=== PATIENT | female | born 1995 | race Caucasian/White ===

== ENCOUNTER 2021-06-17 09:38 | Inpatient (IN) | payer BC, SELFPAY ==
[2021-06-17] VITALS (36 sets, daily range): BP systolic 98–133; BP diastolic 55–89; PULSE 63–105; RESP 16–18; TEMP 36.2–36.9; O2SAT 98–100; BMI 23.1
[2021-06-17 10:33] LABS: Basophils Percent Auto 0.3 % (0.2-1.2); Eosinophils Absolute Auto 0.2 K/mm3 (0-0.3); Eosinophils Percent Auto 1.6 % (0-4.4); Hematocrit 40.8 % (37.0-47.0); Hemoglobin 13.4 g/dL (12.0-15.0); Immature Granulocyte Absolute 0.04 K/mm3 (0.00-0.031); Immature Granulocyte Percent A 0.4 % (0-0.5); Lymphocytes Absolute Auto 1.86 K/mm3 (0.9-3.2); Lymphocytes Percent Auto 16.6 % (18.3-44.2); Mean Corpuscular HGB Conc 32.8 g/dl (32-36); Mean Corpuscular Hemoglobin 30.4 pg (26-34); Mean Corpuscular Volume 92.5 fl (80-100); Mean Platelet Volume 12.3 fl (7.4-10.4); Monocytes Absolute Auto 0.9 K/mm3 (0.1-0.6); Monocytes Percent Auto 7.6 % (2.6-8.5); Neutrophils Absolute Auto 8.3 K/mm3 (1.3-6.7); Neutrophils Percent Auto 73.5 % (45.5-73.1); Platelet Count Result 171 k/mm3 (150-375); Red Blood Count 4.41 M/mm3 (4.2-5.4); Red Cell Distribution Width 12.7 % (11.5-14.5); White Blood Count 11.2 K/mm3 (4.5-10.0)
--- NOTE | 2021-06-17 11:43 | LDADM ---
This patient, Josep Amezquita, was admitted to Labor/Delivery/Recovery 105 on 06/17/21 at 09:38. Plans for labor, pain management and were discussed with patient. Patient/family oriented to hospital policies and general routines including ID bracelet, bed and alarms, visiting hours, pain management, procedures, bathroom and other care routines, personal items, smoking policy, room service/diet and guest tray routines, security routines, and visiting hours. Patient/Family are encouraged to report perceived risks to care and to ask questions if they do not understand what they are told or what they should do. See OBIX for further documentation.
[2021-06-17] MEDS: fentaNYL CITRATE INJ (*CRX) 100 MCG/2 ML VIAL 50 MCG IV PUSH (12:09)
--- NOTE | 2021-06-17 12:18 | WPDOBADMIT ---
Obstetrics - Admit Note Admission Note: record reviewed. No pertinent additions to the history and/or any subsequent changes in the physical findings that are not consistent with the expected course of the were found. Pt admitted after SROM at home 4 cm per rn, anticipate vaginal delivery Additions to the history and/or subsequent changes in the physical findings follow. None.
[2021-06-17] MEDS: LACTATED RINGERS 1,000 ML 125 ML IV CONT (12:41)
--- NOTE | 2021-06-17 13:41 | P.PCNOB_ITS ---
OB - Delivery Note Procedure Delivery date: 06/17/21 Procedure: vaginal delivery Intrapartal events: None Induction method: none Delivery monitor: external FHT and external uterine Route of delivery: Laceration Description: Perineal - 1st Degree Delivery repair: vicryl Specimen: No Quantitative Blood Loss (ml): 100 Anesthesia type: Epidural Disposition: floor [place] Baby Date of : 06/17/21 Time of : 13:28 Weeks of gestation at delivery: 37 Infant gender: Male Weight (pounds): 6 Weight (ounces): 6 presentation: vertex position: Left Occiput Anterior Placenta delivery description: Spontaneous cord vessel description: 3 Vessels, Nuchal Cord, Tight and Clamped/Cut score one minute: 5 score five minutes: 8 Narrative: nuchal cord tight clamped and cut on perineum, compound presentation with anterior forearm delivered with head, delivered easily and handed to RN, mother and baby in stable condition
[2021-06-17] MEDS: WITCH HAZEL 40 PADS 1 PAD TOPICAL (16:25)
[2021-06-17] MEDS: BENZOCAINE 20% AER SPR (*SP) 56 GM CAN 1 SPRAY TOPICAL (16:25)
--- NOTE | 2021-06-17 16:55 | OBPPTRN ---
Patient transferred to post room # 288 via wheelchair. Support person present. Oriented to unit, room, information board, rooming in, admission packet and security measures. Patient verbalizes understanding. PT received instructions per one to one discussion, mom baby care guide and demonstration. PT and spouse both recipients of such instructions and no barriers to learning identified.
[2021-06-18 05:59] LABS: Hematocrit 34.4 % (37.0-47.0); Hemoglobin 11.7 g/dL (12.0-15.0)
--- NOTE | 2021-06-18 07:00 | PC.NURSE ---
PT introductions made and plan of care discussed per post , pain management, breast feeding, daily care activities. PT received instructions and education through this shift via one to one discussion, mom baby care guide and demonstration. Both patient and spouse recipients of instructions and no barriers to learning identified. PT verbalized understanding of such care.
[2021-06-18 07:45] VITALS: BP 98/51; PULSE 78; RESP 18; TEMP 37.1; O2SAT 97
--- NOTE | 2021-06-18 08:17 | P.PNOB_ITS ---
OB - PN: Subj Subjective Date/time seen: 06/18/21 08:17 Patient comments: no complaints baby status: doing well OB - PN: Obj Data Labs CBC & Chem 7: 06/18/21 05:51 Labs: Laboratory Results - last 24 hr 06/17/21 06/17/21 06/18/21 10:26 10:26 05:51 WBC 11.2 H RBC 4.41 Hgb 13.4 11.7 L Hct 40.8 34.4 L MCV 92.5 MCH 30.4 MCHC 32.8 RDW 12.7 Plt Count 171 MPV 12.3 H Immature Gran % (Auto) 0.4 Neut % (Auto) 73.5 H Lymph % (Auto) 16.6 L [place] % (Auto) 7.6 Eos % (Auto) 1.6 Baso % (Auto) 0.3 Lymph # (Auto) 1.86 [place] # (Auto) 0.9 H Eos # (Auto) 0.2 Baso # (Auto) 0.0 Abs Immat Gran (auto) 0.04 H Absolute Neuts (auto) 8.3 H Absolute Nucleated RBC 0.0 Nucleated RBC % 0.0 Blood Type O Positive Antibody Screen Negative OB - PN A/P Plan day: 1 Plan: routine care Time Spent With Patient Time: Total time spent is greater than 50% in coordination of care (as documented) at patient's floor/unit and/or counseling patient: Time with patient: less than 15 minutes Review of Systems Review of Systems: All systems reviewed & are unremarkable except as noted in HPI and below Exam Narrative: Fundus firm and vaginal flow controlled. No lower ext redness, warmth, or edema. Negative homans. Const: General: comfortable Chest: Breast/axilla inspection: normal inspection of the breasts Resp: Effort & Inspection: normal respiratory effort Cardio: Rate: regular rate GI: GI Palp: Yes Soft to palpation Psych: Appearance: grossly normal Affect: normal affect Attitude: cooperative Thought content: Yes Normal thought content present Judgement: Good judgement present (Psych)
[2021-06-18 09:27] LABS: Rapid Plasma Reagin Non-Reactive (NonReactive)
--- NOTE | 2021-06-18 09:51 | WPDANLDPN2 ---
Anes-Prog Note L&D Date/Time: 06/18/21 09:51 Comfortable throughout: labor and delivery Neuraxial method: epidural Epidural/Spinal procedure site: clean & non-tender Neuro status: Neuro function grossly intact. Cardiovascular status: normal Respiratory status: normal Airway patency: baseline Mental status: baseline Post-Op hydration status: normal Vital Signs: Last Vital Signs Temp 37.1 C 06/18/21 07:45 Pulse 78 06/18/21 07:45 Resp 18 06/18/21 07:45 BP 98/51 L 06/18/21 07:45 Pulse Ox 97 06/18/21 07:45 Pain score (VAS): 3 I/O: Intake & Output 06/17/21 06/18/21 06/18/21 23:59 07:59 15:59 Output Total 100 Balance -100 Post-procedural complaints: none Patient feedback: Patient satisfied with anesthetic care.
[2021-06-18 10:45] VITALS: PULSE 120; RESP 18; O2SAT 97
[2021-06-18] MEDS: IBUPROFEN 600 MG TABLET PO ×2 (10:47→17:26)
[2021-06-18] MEDS: MULTIVIT/MIN/PREN/FOL AC/IRON TABLET 1 TAB PO (10:47)
[2021-06-18] MEDS: DOCUSATE SODIUM 100 MG CAPSULE PO ×2 (10:47→17:26)
[2021-06-18] MEDS: TETANUS,DIPHTHERIA,AC PERTUSSIS ADULT (0.5 ML) BOOSTRIX IM (10:48)
[2021-06-18] MEDS: LANOLIN (LANSINOH) 7.5 GM CREAM 1 APPLIC TOPICAL (10:48)
[2021-06-18 12:36] VITALS: BP 119/77; PULSE 78; RESP 16; TEMP 37.1; O2SAT 98
--- NOTE | 2021-06-18 13:15 | PC.NURSE ---
Mother called out for assist with feeding, reporting she supplementing after feedings and pumping due to infant sleepiness at breast. is able to freely thrust tongue past gum ridge and flange both lips. Skin is intact on both nipples, no redness and bruising noted. Discussed the near term/ and possible precautions of weak latch, sleepy feedings, needing to wake each feeding, inability to maintain latch and poor milk transfer which increases chance for increased weight loss, jaundice and low milk supply. Stressed the importance of adequate breast stimulation by pumping, self-expression and skin to skin. Reviewed infant feeding cues, frequencies, duration of feedings, feeding elimination flow sheet, and signs of adequate intake. Demonstrated stimulation techniques to wake for feeding. Assisted with infant to breast. Reviewed positioning/alignment in cross cradle, holding breast in ?U? hold and guided asymmetrical latch on. Discussed rational for each. Infant able to latch correctly. Reviewed signs of a correct latch, effective nursing and suck swallow ratio. nursed sleepily with consistent steady draws and occasional swallowing noted with long pausing. Reviewed the difference of effective vs ineffective nursing. Suggested mother stimulate while feeding to increase stimulation, increase intake and to assist with maintaining deep latch. Infant was able to maintain latch without discomfort to mother. Demonstrated how to adjust latch more deeply while feeding if needed. Nipple care reviewed of lanolin after feedings, warm compresses as needed. Mother will continue to pump and supplement until infant is more awake with eager consistent feeding.
[2021-06-18 20:00] VITALS: BP 108/77; PULSE 79; RESP 16; TEMP 36.7; O2SAT 97
[2021-06-19] MEDS: IBUPROFEN 600 MG TABLET PO ×2 (01:18→09:21)
--- NOTE | 2021-06-19 07:39 | PM.OBPNVD ---
OB - PN: Subj Subjective Date/time seen: 06/19/21 07:39 Patient comments: other (? hemorrhoid per pt) [place] baby status: doing well feeding status: breast and bottle feeding OB - PN: Obj Data Labs CBC & Chem 7: 06/18/21 05:51 Labs: Laboratory Results - last 24 hr 06/17/21 10:26 RPR Non-reactive OB - PN A/P Plan day: 2 Plan: routine care and discharge home Time Spent With Patient Time: Total time spent is greater than 50% in coordination of care (as documented) at patient's floor/unit and/or counseling patient: Review of Systems Review of Systems: All systems reviewed & are unremarkable except as noted in HPI and below Exam Narrative: small excess skin from repair protruding Const: General: cooperative
--- NOTE | 2021-06-19 07:41 | PM.OBDSVD ---
DS: Admitting Diagnosis Admitting Diagnosis SROM, labor OB - DS: Summary OB Procedures : None OB Procedures Intrapartum: Spontaneous Vag Delivery OB Procedures: : None Time Spent with Patient Time attestation: Total time spent providing and/or coordinating discharge services: DS: Data Data Completed and Pending Labs on day of discharge: Labs from last 24 hours 06/17/21 10:26 RPR Non-reactive Discharge Plan Discharge Attending physician on discharge: Mara Guzmán Discharging Clinician: Thuy Frye Patient Disposition: Home, Self-Care Activity: pelvic rest Diet: regular Patient Instructions: Antibiotic Form Stand Alone Forms: General Discharge Information Follow-up/Referrals: Thuy Frye, CNM [Certified Nurse Atmospheric Scientist] - 1 Week (to check on laceration) Discharge Medications: New ibuprofen 600 mg Tablet 600 mg PO Q6H PRN (Reason: Cramping) Qty: 30 RF: 0 Continued PNV cmb#95-ferrous fumarate-FA [] 28 mg iron- 800 mcg Tablet 1 tablet PO DAILY RF: 0 Date of admission: 06/17/21 09:38 Primary Care Provider: PHYSICIAN,PROFESSOR OF POLITICAL SCIENCE Admitting Provider: Mara Guzmán Attending physician on admission: Mara Guzmán Condition: Stable
--- NOTE | 2021-06-19 08:15 | PC.NURSE ---
Mother is able to independently latch with appropriate positioning/alignment. Infant is more awake and eagerly feeding this observation. She denies any nipple discomfort, is feeding as required and waking infant to feed if needed. Infant has had several effective feedings in the past 24 hours followed by supplementation, and is currently meeting outcomes for weight, output, jaundice and feeding frequencies. Mother is pumping after each feeding without difficulties or discomfort and has a [employer] double electric for home use. Mother states she feels confident to continue continue current feeding at home of breast/supplementation. Discussed to increase supplementation to desires. With increased supplement may not want to feed for 4 hours, then should be woken to feed. Mother will continue to pump on infant feeding schedule increasing session to 20 minutes if every 4 hours. Reviewed as mother's milk transitions in and infant continues to nurse effectively he may want to decrease supplementation. Advised not to discontinue until pre/post feeding evaluation is done by follow up, ICP or LC. Reviewed transition to breast milk, signs of adequate intake, and engorgement/relief. Instructed to call ICP if intake/output less than required. Reviewed regular medications mother is taking. Information provided per Pamela. Reviewed community resources on the [facility] website and in the Mom/Baby guide. Information on outpatient services provided. Mother has no further questions at this time.
[2021-06-19 08:40] VITALS: BP 106/67; PULSE 75; RESP 16; TEMP 36.7; O2SAT 100
[2021-06-19] MEDS: MULTIVIT/MIN/PREN/FOL AC/IRON TABLET 1 TAB PO (09:22)
[2021-06-19] MEDS: DOCUSATE SODIUM 100 MG CAPSULE PO (09:22)
--- NOTE | 2021-06-19 15:10 | PC.NURSE ---
3232 Patient and FOB viewed the discharge video Mother & Baby Care, The First Two Weeks . Patient was given the opportunity and encouraged to ask questions. Patient verbalized understanding of information shared and has been given the mother/baby guide for home reference.
[2021-06-20 08:32] VITALS: BP 115/80; PULSE 72; RESP 18; TEMP 36.6
== END 2021-06-19 13:26 | disposition home or self-care (01) | DRG 807 ==
LOC: ANHLDR 10:28 → ANHOB2 17:06
PROVIDERS: Advanced Practice Midwife; Admitting Provider Obstetrics & Gynecology; Visit Provider Obstetrics & Gynecology
DX: O32.6XX0 Maternal care for compound presentation, not applicable or unspecified (principal); Z37.0 Single live birth; O70.0 First degree perineal laceration during delivery; O69.1XX0 Labor and delivery complicated by cord around neck, with compression, not applicable or unspecified; Z3A.37 37 weeks gestation of pregnancy
CPT/HCPCS: 36415; 84112; 85014; 85018; 85025; 86592; 86850; 86900; 86901; 90715; A9270; J2795; J3010; J7120

== ENCOUNTER 2023-07-30 18:15 | Outpatient (CLI) | payer OTHER, SELFPAY ==
[2023-07-30 18:34] VITALS: BP 107/68; PULSE 70
[2023-07-30] MEDS: ACETAMINOPHEN/BUTALBITAL/CAFFEINE 325-50-40 MG TABLET (FIORICET) 1 TAB PO (19:14)
[2023-07-30 19:18] VITALS: BP 99/66; PULSE 81
--- NOTE | 2023-07-30 19:28 | OBADM ---
This patient, Josep Amezquita, admitted to the OB room OB Post 116 for observation. Patient/family oriented to hospital policies and general routines including ID bracelet, bed and alarms, visiting hours, pain management, procedures, bathroom and other care routines, personal items, smoking policy, room service/diet, and visiting hours. Patient/Family are encouraged to report perceived risks to care and to ask questions if they do not understand what they are told or what they should do.
[2023-07-30 19:30] VITALS: BP 103/64; PULSE 79
[2023-07-30 19:33] LABS: Basophils Percent Auto 0.2 % (0.2-1.2); Eosinophils Absolute Auto 0.2 K/mm3 (0-0.3); Eosinophils Percent Auto 1.9 % (0-4.4); Hematocrit 35.6 % (37.0-47.0); Hemoglobin 11.5 g/dL (12.0-15.0); Immature Granulocyte Absolute 0.03 K/mm3 (0.00-0.031); Immature Granulocyte Percent A 0.4 % (0-0.5); Lymphocytes Absolute Auto 1.64 K/mm3 (0.9-3.2); Lymphocytes Percent Auto 19.5 % (18.3-44.2); Mean Corpuscular HGB Conc 32.3 g/dl (32-36); Mean Corpuscular Hemoglobin 30.5 pg (26-34); Mean Corpuscular Volume 94.4 fl (80-100); Mean Platelet Volume 10.8 fl (7.4-10.4); Monocytes Absolute Auto 0.7 K/mm3 (0.1-0.6); Monocytes Percent Auto 8.2 % (2.6-8.5); Neutrophils Absolute Auto 5.9 K/mm3 (1.3-6.7); Neutrophils Percent Auto 69.8 % (45.5-73.1); Platelet Count Result 189 k/mm3 (150-375); Red Blood Count 3.77 M/mm3 (4.2-5.4); Red Cell Distribution Width 12.7 % (11.5-14.5); White Blood Count 8.4 K/mm3 (4.5-10.0)
[2023-07-30 19:40] LABS: Appearance Urine Clear (Clear); Bilirubin Urine Negative (Negative); Blood Urine Negative (Negative); Color Urine Yellow (Yellow); Glucose Urine UA Negative (Negative); Ketones Urine 1+ mg/dL (Negative); Leukocyte Esterase Ur Negative LEU/UL (NEGATIVE); Nitrate Urine Negative (Negative); Protein Urine Negative (Negative); Specific Grav Ur 1.025 (1.001-1.035); Urobilinogen Urine 0.2 mg/dL (<2.0); pH Urine 7.5 (5.0-9.0)
[2023-07-30 19:46] LABS: Creatinine Urine 104.4 mg/dL
[2023-07-30 19:50] LABS: Alanine Aminotransferase 11 U/L (6-35); Albumin Level 3.4 g/dL (3.5-5.1); Alkaline Phosphatase 80 U/L (38-126); Anion Gap 2 mmol/L (8-16); Aspartate Amino Transferase 22 U/L (14-36); Bilirubin,Total 0.3 mg/dL (0.2-1.3); Blood Urea Nitrogen 9 mg/dL (7-17); Calcium 8.4 mg/dL (8.4-10.2); Carbon Dioxide 26 mmol/L (22-30); Chloride 104 mmol/L (98-107); Estimated CRCL calculation 145 ml/min; Estimated Glomerular Filt Rate > 60; Glucose 72 mg/dL (65-110); Potassium 3.6 mmol/L (3.4-5.0); Sodium 132 mmol/L (137-145)
[2023-07-30 20:00] VITALS: BP 107/74; PULSE 84
[2023-07-30 20:02] LABS: Add Urine Microscopic? NO
[2023-07-30 20:03] LABS: Total Protein Urine Random < 5 mg/dL; Ur Ttl Prot Creatinine Ratio < 0.05 mg/mg (0-0.20)
== END 2023-07-30 20:19 | disposition home or self-care (01) ==
LOC: ANHOBOP 18:22 → ANHOBPP 18:25
PROVIDERS: Advanced Practice Midwife; Visit Provider Obstetrics & Gynecology
DX: Z34.90 Encounter for supervision of normal pregnancy, unspecified, unspecified trimester (principal); Z3A.00 Weeks of gestation of pregnancy not specified
CPT/HCPCS: 36415; 80053; 81003; 82570; 84156; 85025; 99199; A9270

== ENCOUNTER 2023-10-08 20:33 | Observation (INO) | payer OTHER, SELFPAY ==
--- NOTE | 2023-10-08 20:33 | OBADM ---
This patient, Josep Amezquita, admitted to the OB room Labor/Delivery/Recovery 105 for observation. Patient/family oriented to hospital policies and general routines including ID bracelet, bed and alarms, visiting hours, pain management, procedures, bathroom and other care routines, personal items, smoking policy, room service/diet, and visiting hours. Patient/Family are encouraged to report perceived risks to care and to ask questions if they do not understand what they are told or what they should do.
[2023-10-08 22:47] VITALS: RESP 16; TEMP 36.6
[2023-10-09 00:01] VITALS: BP 112/70; PULSE 71
[2023-10-09 00:15] VITALS: BP 110/70; PULSE 77
--- NOTE | 2023-10-09 00:26 | PC.NURSE ---
Discharge instructions reviewed with patient and significant other. Patient educated on labor precautions. Patient states understanding of discharge education and instructions. Patient instructed to follow-up at her regular OB appointment.
--- NOTE | 2023-10-10 14:06 | PM.OBTRLD ---
OB - Triage/Final Diagnosis Visit Information Date of evaluation: 10/09/23 Reason for evaluation: threatened labor Comments/Additional reasons for admission: I have assessed the risk for this patient, Josep Amezquita, and determined that she would benefit from observation care.
== END 2023-10-09 00:34 | disposition home or self-care (01) ==
PROVIDERS: Admitting Provider Obstetrics & Gynecology; Visit Provider Obstetrics & Gynecology
DX: O47.1 False labor at or after 37 completed weeks of gestation (principal); Z3A.37 37 weeks gestation of pregnancy
CPT/HCPCS: G0378; G0379

== ENCOUNTER 2023-10-25 04:09 | Inpatient (IN) | payer OTHER, SELFPAY ==
[2023-10-25] VITALS (15 sets, daily range): BP systolic 99–123; BP diastolic 58–95; PULSE 25–97; RESP 16–18; TEMP 36.7–37.5; O2SAT 97–100
[2023-10-25 04:33] LABS: Basophils Absolute Auto 0.1 K/mm3 (0.0-0.1); Basophils Percent Auto 0.5 % (0.2-1.2); Eosinophils Absolute Auto 0.4 K/mm3 (0-0.3); Eosinophils Percent Auto 3.2 % (0-4.4); Hematocrit 39.8 % (37.0-47.0); Hemoglobin 13.1 g/dL (12.0-15.0); Immature Granulocyte Absolute 0.03 K/mm3 (0.00-0.031); Immature Granulocyte Percent A 0.3 % (0-0.5); Lymphocytes Absolute Auto 3.56 K/mm3 (0.9-3.2); Lymphocytes Percent Auto 30.6 % (18.3-44.2); Mean Corpuscular HGB Conc 32.9 g/dl (32-36); Mean Corpuscular Hemoglobin 30.2 pg (26-34); Mean Corpuscular Volume 91.7 fl (80-100); Mean Platelet Volume 11.1 fl (7.4-10.4); Monocytes Absolute Auto 1.2 K/mm3 (0.1-0.6); Monocytes Percent Auto 10.6 % (2.6-8.5); Neutrophils Absolute Auto 6.4 K/mm3 (1.3-6.7); Neutrophils Percent Auto 54.8 % (45.5-73.1); Platelet Count Result 183 k/mm3 (150-375); Red Blood Count 4.34 M/mm3 (4.2-5.4); Red Cell Distribution Width 13.1 % (11.5-14.5); White Blood Count 11.6 K/mm3 (4.5-10.0)
--- NOTE | 2023-10-25 05:02 | WPDANESEPP ---
Anes - Eval Pre Procedure Procedure: labor epidural Date/Time: 10/25/23 05:02 Surgeon: hugh Preop Diagnosis: pain during labor Pre Op Diagnosis: Labor Patient Data Age: 28 Gender: F Height: Weight: Last Vital Signs Pulse 82 10/25/23 04:46 BP 121/95 H 10/25/23 04:46 Pulse Ox 100 10/25/23 04:48 Allergies Allergy/AdvReac Type Severity Reaction Status Date / Time Sulfa (Sulfonamide Allergy Hives Verified 09/28/23 12:23 Antibiotics) Home Medications Medication Instructions Recorded Confirmed Type vit no.95-ferrous 1 tablet PO DAILY 06/04/21 09/28/23 History fumarate 28 mg-folic acid 800 mcg tablet () Laboratory Tests 10/25/23 04:29 WBC 11.6 H K/mm3 (4.5-10.0) RBC 4.34 M/mm3 (4.2-5.4) Hgb 13.1 g/dL (12.0-15.0) Hct 39.8 % (37.0-47.0) MCV 91.7 fl (80-100) MCH 30.2 pg (26-34) MCHC 32.9 g/dl (32-36) RDW 13.1 % (11.5-14.5) Plt Count 183 k/mm3 (150-375) MPV 11.1 H fl (7.4-10.4) Immature Gran % (Auto) 0.3 % (0-0.5) Neut % (Auto) 54.8 % (45.5-73.1) Lymph % (Auto) 30.6 % (18.3-44.2) [place] % (Auto) 10.6 H % (2.6-8.5) Eos % (Auto) 3.2 % (0-4.4) Baso % (Auto) 0.5 % (0.2-1.2) Lymph # (Auto) 3.56 H K/mm3 (0.9-3.2) [place] # (Auto) 1.2 H K/mm3 (0.1-0.6) Eos # (Auto) 0.4 H K/mm3 (0-0.3) Baso # (Auto) 0.1 K/mm3 (0.0-0.1) Abs Immat Gran (auto) 0.03 K/mm3 (0.00-0.031) Absolute Neuts (auto) 6.4 K/mm3 (1.3-6.7) Absolute Nucleated RBC 0.0 K/mm3 (0.0-0.012) Nucleated RBC % 0.0 % (0.0-0.2) RPR Pending Blood Type Pending Antibody Screen Pending Patient hx anesthesia problems: none Family hx anesthesia problems: none Results Review: All pre-operative results and documents have been reviewed as part of the pre-operative evaluation. [facility] Past Medical History Medical History (Updated 10/25/23 @ 05:03 by Ashley Jacobsen CRNA) IUP (intrauterine ), incidental Family History Family History Other No pertinent family history Social History Social History Smoking status: Never smoker Substance use: never Gender identity (if verbalized by the patient): Female Spiritual care concerns: No Exam Day of Procedure 10/25/23 05:02
--- NOTE | 2023-10-25 05:03 | P.PCNOB_ITS ---
OB - Vaginal Delivery Note Procedure Delivery date: 10/25/23 Delivery monitor: External FHT and External Uterine Route of delivery: Episiotomy description: None Laceration Description: None Specimen: No Quantitative Blood Loss (ml): 70 Anesthesia type: Epidural Disposition: Floor [place] Baby Date of : 10/25/23 Time of : 04:53 Weeks of gestation at delivery: 40 gender: Female presentation: vertex position: Left Occiput Anterior Placenta delivery description: Spontaneous Cord Vessel Description: 3 Vessels, Nuchal Cord (x1), Reduced and Delayed Cord Clamping score one minute: 8 score five minutes: 9 Narrative: mother and baby skin to skin in stable condition
--- NOTE | 2023-10-25 05:03 | WPDOBADMIT ---
Obstetrics - Admit Note Admission Note: record reviewed. No pertinent additions to the history and/or any subsequent changes in the physical findings that are not consistent with the expected course of the were found. Additions to the history and/or subsequent changes in the physical findings follow. arrived in labor, SROM
--- NOTE | 2023-10-25 07:58 | OBPPTRN ---
Patient transferred to post room #290 via wheelchair. Support person present. Oriented to unit, room, information board, rooming in, admission packet and security measures. Patient verbalizes understanding.
[2023-10-25] MEDS: BENZOCAINE 20% AER SPR (*SP) 56 GM CAN 1 SPRAY TOPICAL (08:06)
[2023-10-25] MEDS: WITCH HAZEL 40 PADS 1 PAD TOPICAL (08:07)
[2023-10-25] MEDS: IBUPROFEN 600 MG TABLET PO ×2 (08:44→20:32)
[2023-10-25 10:33] LABS: Rapid Plasma Reagin Non-Reactive (NonReactive)
[2023-10-26 04:20] VITALS: BP 112/76; PULSE 57; RESP 18; TEMP 36.4; O2SAT 98
[2023-10-26] MEDS: IBUPROFEN 600 MG TABLET PO (04:20)
[2023-10-26 05:01] LABS: Hematocrit 36.1 % (37.0-47.0); Hemoglobin 11.4 g/dL (12.0-15.0)
--- NOTE | 2023-10-26 07:23 | WPDANLDPN2 ---
Anes-Prog Note L&D Date/Time: 10/26/23 07:23 Comfortable throughout: labor and delivery Neuraxial method: epidural Epidural/Spinal procedure site: clean & non-tender Neuro status: Neuro function grossly intact. Cardiovascular status: normal Respiratory status: normal Airway patency: baseline Mental status: baseline Post-Op hydration status: normal Vital Signs: Last Vital Signs Temp 36.4 C 10/26/23 04:20 Pulse 57 L 10/26/23 04:20 Resp 18 10/26/23 04:20 BP 112/76 10/26/23 04:20 Pulse Ox 98 10/26/23 04:20 O2 Del Method Room Air 10/25/23 20:40 Pain score (VAS): 110 Post-procedural complaints: none Patient feedback: Patient satisfied with anesthetic care.
--- NOTE | 2023-10-26 07:33 | WPDOBADMIT ---
Obstetrics - Admit Note Admission Note: delete \
--- NOTE | 2023-10-26 07:34 | PM.OBPNVD ---
OB - PN: Subj Subjective Date/time seen: 10/26/23 07:34 Interval history: doing well would like d/c home OB - PN: Obj Data Labs 10/26/23 04:31 Labs: Laboratory Results - last 24 hr 10/25/23 10/26/23 04:29 04:31 Hgb 11.4 L Hct 36.1 L RPR Non-reactive OB - PN A/P Plan day: 1 Plan: routine care and discharge home Time Spent With Patient Time: Total time spent is greater than 50% in coordination of care (as documented) at patient's floor/unit and/or counseling patient: Review of Systems Review of Systems: All systems reviewed & are unremarkable except as noted in HPI and below Exam Const: General: cooperative, healthy appearing and comfortable Chest: Chest palpation & inspection: normal inspection of the chest Resp: Effort & Inspection: normal respiratory effort Cardio: Rate: regular rate Skin: General skin exam: normal color Extrem: General: normal to inspection
--- NOTE | 2023-10-26 07:37 | P.DS_ITS ---
DS: Admitting Diagnosis Discharge Date 10/26/23 Admitting Diagnosis labor DS: Discharge Diagnosis Discharge Diagnosis (1) Vaginal delivery: Code(s): O80 - Encounter for full-term uncomplicated delivery Status: Acute OB - DS: Summary OB Procedures : None OB Procedures Intrapartum: Spontaneous Vag Delivery OB Procedures: : None Peripartum Data Laceration Description: None Episiotomy description: None Time Spent with Patient Time attestation: Total time spent providing and/or coordinating discharge services: DS: Data Data Completed and Pending Labs on day of discharge: Labs from last 24 hours 10/26/23 10/25/23 04:31 04:29 Hgb 11.4 L Hct 36.1 L RPR Non-reactive Discharge Plan Discharge Attending physician on discharge: Mara Guzmán Consulting providers: Thuy Frye Discharging Clinician: Thuy Frye Patient Disposition: Home, Self-Care Activity: pelvic rest Diet: regular Patient Instructions: Antibiotic Form Stand Alone Forms: General Discharge Information Follow-up/Referrals: Thuy Frye CNM [Certified Nurse Outside Sales Representative Insurance] - 4 Weeks Discharge Medications: New ibuprofen 600 mg Tablet 600 mg PO Q6H PRN (Reason: Cramping) Qty: 30 0RF Continued PNV cmb#95-ferrous fumarate-FA [] 28 mg iron- 800 mcg Tablet 1 tablet PO DAILY Date of admission: 10/25/23 04:09 Primary Care Provider: PHYSICIAN,RADIO NEWS ANCHOR Admitting Provider: Mara Guzmán Attending physician on admission: Mara Guzmán Condition: Stable
[2023-10-26 07:40] VITALS: BP 104/66; PULSE 72; RESP 16; TEMP 36.9; O2SAT 99
[2023-10-26] MEDS: MULTIVIT/MIN/PREN/FOL AC/IRON TABLET 1 TAB PO (09:26)
--- NOTE | 2023-10-26 14:27 | PC.NURSE ---
[id number] Introductions were made to father of baby due to mother taking a shower. Father of baby states is going well and she hasn't complained . Name was written on the communication board for mother to call when she is finished if she has questions or pain with . Father voiced understanding of this information. It has been reported that the mother has been independently and the couplet has met the standards for discharge orders today.
[2023-10-28 10:58] VITALS: BP 111/70; PULSE 87; RESP 16; TEMP 36.9
== END 2023-10-26 12:20 | disposition home or self-care (01) | DRG 807 ==
LOC: ANHLDR 04:33 → ANHOB2 08:00
PROVIDERS: Advanced Practice Midwife; Admitting Provider Obstetrics & Gynecology; Visit Provider Obstetrics & Gynecology
DX: O62.3 Precipitate labor (principal); Z37.0 Single live birth; Z3A.40 40 weeks gestation of pregnancy; O69.81X0 Labor and delivery complicated by cord around neck, without compression, not applicable or unspecified
CPT/HCPCS: 36415; 85014; 85018; 85025; 86592; 86850; 86900; 86901; A9270; J2795

== ENCOUNTER 2024-05-03 10:48 | Emergency (ER) | payer OTHER, SELFPAY ==
[2024-05-03 11:15] VITALS: BP 94/60; PULSE 71; RESP 16; TEMP 36.4; O2SAT 99
--- NOTE | 2024-05-03 12:14 | ED.GENADULT ---
HPI - General Adult General Chief complaint: Skin/Abscess/Foreign Body Stated complaint: 'I think I have a spider bite Time Seen by Provider: 05/03/24 12:06 History of Present Illness HPI narrative: Patient is a 29-year-old female who presents to the emergency department this afternoon complaining of a spider bite to her lateral right upper thigh. Patient states that she did not see what bit her but they did see a spider that looked like a brown recluse in the house. The area is rounded and erythematous, blanchable and nontender. Patient's tetanus shot is up-to-date from 2020 when she had a baby. Patient is currently denying any pain in the area and has no symptoms including nausea, vomiting, fevers or chills. No additional symptoms or concerns at this time. Related Data Home Medications Medication Instructions Recorded Confirmed vit no.95-ferrous 1 tablet PO DAILY 06/04/21 09/28/23 fumarate 28 mg-folic acid 800 mcg tablet () Allergies Allergy/AdvReac Type Severity Reaction Status Date / Time Sulfa (Sulfonamide Allergy Hives Verified 05/03/24 11:21 Antibiotics) Review of Systems Review of Systems: All systems are reviewed and are negative unless stated otherwise in the HPI. [facility] Past Medical History Medical History IUP (intrauterine ), incidental Family History Family History Other No pertinent family history Social History Social History Smoking status: Never smoker Second hand tobacco smoke exposure: No Substance use: never Do You Feel Safe in your Home?: Yes Lack of Transportation: No Lack of Food: Never True Current Housing: I Have Housing Concerned About Future Housing: No Difficulty Paying Gas/Electric Bills: No Difficulty Paying for Meds: No Currently Unemployed: No Education: Bachelor's Degree Difficulty w/ Childcare or Family Care: No Gender identity (if verbalized by the patient): Female Spiritual care concerns: No Exam Narrative: General: Alert, awake, afebrile, in no acute distress. HEENT: PERRL, no rhinorrhea, no post nasal drip, oropharynx clear. Cardiovascular: Regular rate and rhythm, no murmurs, rubs or gallops, no peripheral edema. Respiratory: Clear to auscultation bilaterally, no tachypnea, no wheezing, no rhonchi, no rubs, no respiratory distress. Abdomen: Soft, nontender, nondistended, no rebound, no guarding, no peritoneal signs. Musculoskeletal: No joint swelling or deformity, normal muscle tone. Skin: Round area of erythema to the upper lateral right thigh measuring approximately 2 x 2 cm, blanchable, no evidence of necrosis, no blistering, nontender to palpation. Neurological: Alert and oriented to person, place, and time. Follows all commands. No focal deficits, speech is clear and fluent. Course Vital Signs Vital signs: Vital Signs Temperature 97.6 F 05/03/24 11:15 Pulse Rate 71 05/03/24 11:15 Respiratory Rate 16 05/03/24 11:15 Blood Pressure 94/60 L 05/03/24 11:15 Pulse Oximetry 99 05/03/24 11:15 Oxygen Delivery Room Air 05/03/24 11:15 Temperature 97.6 F 05/03/24 11:15 Pulse Rate 71 05/03/24 11:15 Respiratory Rate 16 05/03/24 11:15 Blood Pressure 94/60 L 05/03/24 11:15 Pulse Oximetry 99 05/03/24 11:15 Oxygen Delivery Room Air 05/03/24 11:15 Medical Decision Making MDM Narrative Medical decision making narrative: The patient was evaluated by myself in the emergency department. History is obtained from patient who is an independent historian and physical exam was performed. External medical records were reviewed at this time. Patient was administered her 1st dose of Keflex 500 mg oral in the emergency department Differential diagnosis considerations include insect bite, bilate
[2024-05-03] MEDS: CEPHALEXIN 500 MG CAPSULE PO (12:37)
== END 2024-05-03 13:10 | disposition home or self-care (01) ==
LOC: ANHED 12:24
PROVIDERS: Emergency Provider Emergency Medicine
DX: T63.301A Toxic effect of unspecified spider venom, accidental (unintentional), initial encounter (principal)
CPT/HCPCS: 99283; A9270